=== PATIENT | male | born 1995 | race Caucasian/White ===

== ENCOUNTER 2016-11-14 09:28 | Emergency (ER) | payer OTHER ==
[2016-11-14] MEDS ORDERED: SODIUM CHLORIDE 0.9% 1,000 ML ONE (10:21)
[2016-11-14] MEDS ORDERED: ONDANSETRON 4 MG VIAL ONE (10:21)
[2016-11-14] MEDS ORDERED: KETOROLAC 30 MG/ML VIAL ONE (11:39)
[2016-11-14] MEDS ORDERED: ASPIRIN 81 MG CHEW TAB ONE (11:44)
== END 2016-11-14 12:33 | disposition home or self-care (01) ==
LOC: ER 09:28
CPT/HCPCS: 96361 ×2; 96374 ×2; 96375 ×2; 99285; J1885; J2405

== ENCOUNTER 2016-11-14 16:24 | Emergency (ER) | payer OTHER ==
[2016-11-14] MEDS ORDERED: ACETAMINOPHEN 325 MG TAB ONE (16:32)
== END 2016-11-14 18:03 | disposition left against medical advice (07) ==
LOC: ER 16:24
DX: Z53.21 Procedure and treatment not carried out due to patient leaving prior to being seen by health care provider (principal)